=== PATIENT | male | born 1985 | race Hispanic/Latino ===

== ENCOUNTER 2017-11-27 20:15 | Emergency (ER) | payer OTHER ==
[2017-11-27 20:25] VITALS: TEMP 98.7; O2SAT 97
--- NOTE | 2017-11-27 20:51 | ED PDOC ---
Arrival/HPI - General Chief Complaint: Abdominal Pain Time Seen by Provider: 11/27/17 20:42 Historian: Patient - History of Present Illness Narrative History of Present Illness (Text): 11/27/17 20:48 32yo male who present with 3days history of colicky RUQ abdominal pain. Patient states pain is usually when he palpates the area or sitting down. Notes he was seen at at Urgent care center this evening and was referred to the ED for further evaluation. He did not take any medication for the pain. Denies nausea, vomiting, diarrhea, constipation, melena, hematuria, hematemesis, chest pain. Past Medical History - Provider Review Nursing Documentation Reviewed: Yes - Cardiac Hx Cardiac Disorders: Yes - Pulmonary Hx Respiratory Disorders: No - Neurological Hx Neurological Disorder: No - HEENT Hx HEENT Disorder: No - Renal Hx Renal Disorder: No - Endocrine/Metabolic Hx Endocrine Disorders: No - Hematological/Oncological Hx Blood Disorders: No - Integumentary Hx Dermatological Disorder: No - Musculoskeletal/Rheumatological Hx Musculoskeletal Disorders: No - Gastrointestinal Hx Gastrointestinal Disorders: No - Genitourinary/Gynecological Hx Genitourinary Disorders: No - Psychiatric Hx Psychophysiologic Disorder: No Hx Substance Use: No Family/Social History - Physician Review Nursing Documentation Reviewed: Yes Family/Social History: Unknown Family HX Smoking Status: Light Smoker < 10 Cigarettes Daily Hx Alcohol Use: Yes Frequency of alcohol use: Socially Hx Substance Use: No Allergies/Home Meds Allergies/Adverse Reactions: Allergies Penicillins Allergy (Verified 11/27/17 20:21) SWELLING Review of Systems - Physician Review All systems were reviewed & negative as marked: Yes - Review of Systems Constitutional: Normal Eyes: Normal ENT: Normal Respiratory: Normal Cardiovascular: Normal Gastrointestinal: Abdominal Pain. absent: Constipation, Diarrhea, Nausea, Vomiting, Hematochezia, Hematemesis Genitourinary Male: Normal Musculoskeletal: Normal Skin: Normal Neurological: Normal Endocrine: Normal Hemo/Lymphatic: Normal Psychiatric: Normal Physical Exam Vital Signs Reviewed: Yes Vital Signs Temp Pulse Resp BP Pulse Ox 11/27/17 20:22 98.7 F 79 16 118/79 97 Temperature: Afebrile Blood Pressure: Normal Pulse: Regular Respiratory Rate: Normal Appearance: Positive for: Well-Appearing, Non-Toxic, Comfortable Pain Distress: None Mental Status: Positive for: Alert and Oriented X 3 - Systems Exam Head: Present: Atraumatic, Normocephalic Pupils: Present: PERRL Extroacular Muscles: Present: EOMI Conjunctiva: Present: Normal Mouth: Present: Moist Mucous Membranes Neck: Present: Normal Range of Motion Respiratory/Chest: Present: Clear to Auscultation, Good Air Exchange. No: Respiratory Distress, Accessory Muscle Use Cardiovascular: Present: Regular Rate and Rhythm, Normal S1, S2. No: Murmurs Abdomen: Present: Other (soft). No: Tenderness, Distention, Peritoneal Signs, Rebound, Guarding, McBurney's Point Tender, Rovsing's Sign Present Back: Present: Normal Inspection Upper Extremity: Present: Normal Inspection. No: Cyanosis, Edema Lower Extremity: Present: Normal Inspection. No: Edema Neurological: Present: GCS=15, CN II-XII Intact, Speech Normal Skin: Present: Warm, Dry, Normal Color. No: Rashes Psychiatric: Present: Alert, Oriented x 3, Normal Insight, Normal Concentration Medical Decision Making - Lab Interpretations Lab Results: 11/27/17 21:31 11/27/17 21:31 Lab Results 11/27/17 21:31: Sodium 141, Potassium 3.8, Chloride 104, Carbon Dioxide 24, Anion Gap 17, BUN 24 H, Creatinine 1.1, Est GFR ( Amer) > 60, Est GFR ( Non-Af Amer) > 60, Random Glucose 119 H, Calcium 9.0, Total Bilirubin 1.8 H, AST 32, ALT 44, Alkaline Phosphatase 63, Total Protein 7.2, Albumin 4.3, Globulin 2.8, Albumin/Globulin Ratio 1.5, Amylase 80, Lipase 71 11/27/17 21:31: PT 11.9, INR 1.04, APTT 30.5 11/27/17 21:31: WBC 10.4, RBC 5.17, Hgb 14.9, Hct 42.9, MCV 83.0, MCH 28.8, MCHC 34.7, RDW 12.7, Plt Count 233, MPV 10.4, Gran % 57.4, Lymph % (Auto) 36.4 H , Worth % (Auto) 4.2, Eos % (Auto) 1.9, Baso % (Auto) 0.1, Gran # 5.95, Lymph # ( Auto) 3.8 H, Worth # (Auto) 0.4, Eos # (Auto) 0.2, Baso # (Auto) 0.01 - RAD Interpretation Radiology Orders: 11/27/17 20:44 GALLBLADDER & PANCREAS [US] Stat Disposition/Present on Arrival - Present on Arrival Any Indicators Present on Arrival: No History of DVT/PE: No History of Uncontrolled Diabetes: No Urinary Catheter: No History of Decub. Ulcer: No History Surgical Site Infection Following: None - Disposition Have Diagnosis and Disposition been Completed?: Yes Diagnosis: Abdominal wall pain Disposition: HOME/ ROUTINE Disposition Time: 22:15 Patient Plan: Discharge Condition: STABLE Discharge Instructions (ExitCare): Acute Abdomen (Belly Pain), Adult (DC) Additional Instructions: Follow up with your doctor/Clinic Return to ED for any new or worsening symptoms Prescriptions: Ibuprofen [Motrin Tab] 600 mg PO Q6 #20 tab Referrals: Mahamed Qureshi MD [Primary Care Provider] - Follow up with primary Forms: [employer] (German)
[2017-11-27 21:40] LABS: BASO # 0.01 K/mm3 (0.0-2.0); BASO % 0.1 % (0.0-3.0); EOS # 0.2 (0.0-0.7); EOS % 1.9 % (1.5-5.0); GRAN # 5.95 (1.4-6.5); GRAN % 57.4 % (50.0-68.0); HEMOGLOBIN 14.9 g/dL (14.0-18.0); LYMPH # 3.8 (1.2-3.4); LYMPH % 36.4 % (22.0-35.0); MEAN CORPUSCULAR HEMOGLOBIN 28.8 pg (25.0-35.0); MEAN CORPUSCULAR HGB CONC 34.7 g/dl (31.0-37.0); MEAN PLATELET VOLUME 10.4 fl (7.0-11.0); MONO # 0.4 (0.1-0.6); MONO % 4.2 % (1.0-6.0); RBC 5.17 10^6/uL (3.5-6.1); RED CELL DISTRIBUTION WIDTH 12.7 % (11.5-14.5); WHITE BLOOD COUNT 10.4 10^3/ul (4.5-11.0)
[2017-11-27 21:50] LABS: ALB/GLOB RATIO 1.5 (1.1-1.8); ALBUMIN 4.3 g/dL (3.0-4.8); ALT/SGPT 44 U/L (7-56); AMYLASE 80 U/L (35-125); AST/SGOT 32 U/L (17-59); BLOOD UREA NITROGEN 24 mg/dL (7-21); GFR AFRICAN-AMERICAN > 60; GFR NON-AFRICAN AMERICAN > 60; INR 1.04 (0.93-1.08); LIPASE 71 U/L (23-300); PARTIAL THROMBOPLASTIN TIME 30.5 Seconds (25.1-36.5); PROTHROMBIN TIME 11.9 SECONDS (9.4-12.5)
--- NOTE | 2017-11-27 22:08 | US ---
EXAM: US Abdomen Limited, Right Upper Quadrant EXAM DATE/TIME: 11/27/2017 8:44 PM CLINICAL HISTORY: The patient age is 32 years old and is male; Pain; Abdominal pain; Flank; Right upper quadrant (ruq); Additional info: [facility] pain Facility exam id and description: Us [id number] gallbladder pancreas TECHNIQUE: Real-time ultrasound of the right upper quadrant with image documentation. COMPARISON: No relevant prior studies available. FINDINGS: Liver: The liver is increased in echogenicity, most commonly due to fatty infiltration, but other chronic liver diseases may have a similar appearance. The liver measures 14.9 x 13.8 cm. Gallbladder: No shadowing gallstones are visualized. There is no significant gallbladder wall thickening or pericholecystic fluid. The sonographic Coombs sign is negative. Common bile duct: The common bile but measure 0.4 cm in diameter, which is within normal limits. Pancreas: The pancreas is poorly visualized due to bowel gas. Right kidney: The right kidney measures 10.1 x 4.7 x 5.5 cm. No stones. No hydronephrosis. Aorta: The aorta is not visualized. Inferior vena cava: The IVC is not visualized. IMPRESSION: 1. The liver is increased in echogenicity, most commonly due to fatty infiltration, but other chronic liver diseases may have a similar appearance. 2. No sonographic evidence of acute cholecystitis. 3. Additional findings described above.
[2017-11-27 23:08] LABS: URINE APPEARANCE CLEAR (CLEAR); URINE BILIRUBIN NEGATIVE (NEGATIVE); URINE BLOOD NEGATIVE (NEGATIVE); URINE COLOR YELLOW (YELLOW); URINE GLUCOSE (UA) NEGATIVE (NEGATIVE); URINE LEUKOCYTE ESTERASE NEGATIVE Leu/uL (NEGATIVE); URINE PROTEIN NEGATIVE mg/dL (<30 mg/dL); URINE UROBILINOGEN 0.2 E.U./dL (<1 E.U./dL)
[2017-11-27 23:29] VITALS: BP 131/75; PULSE 70; RESP 18
== END 2017-11-27 22:53 | disposition home or self-care (01) ==
LOC: ED 20:15
DX: R10.9 Unspecified abdominal pain (principal)
CPT/HCPCS: 76705; 80053; 81003; 82150; 83690; 85025; 85610; 85730; 96374; 99284; J1885